=== PATIENT | male | born 1985 | race Caucasian/White ===

== ENCOUNTER 2019-09-26 17:04 | Emergency (ER) | payer BC, SELFPAY ==
[2019-09-26 17:14] VITALS: BP 133/73; PULSE 78; RESP 20; TEMP 37.6; O2SAT 99
--- NOTE | 2019-09-26 17:20 | ED.ANIMALBIT ---
HPI - Animal Bite General Chief Complaint: Animal Bite Stated Complaint: Dog Bite Time Seen by Provider: 09/26/19 17:20 Source: patient and RN notes reviewed History of Present Illness HPI narrative: Patient is a 33-year-old male that presents the urgent care with complaints of a right hand dog bite. Patient states that he works for [employer] and the bite occurred at approximately 1030/11 a.m. this morning, in [place], [place]. This will be a Workmen's Comp. case. Patient states that he got bit by a Korean Babin that is in fact not been vaccinated since 2017. That was verified with animal control. Animal control will follow-up with the dog within the next 10 days. It was advised to the patient that he obtain the rabies vaccinations. Patient also reports of some swelling around the puncture wounds. Patient continue to work for the rest of his [employer] shift. No other acute complaints. No acute distress noted. Patient read the plan of care. Related Data Home Medications Medication Instructions Recorded Confirmed albuterol sulfate 1 inh INHALATION QID PRN 09/26/19 09/26/19 Allergies Allergy/AdvReac Type Severity Reaction Status Date / Time Penicillins Allergy Unknown Rash Verified 09/26/19 17:30 SHELLFISH Allergy Unknown Rash Uncoded 09/26/19 17:30 Review of Systems Review of Systems: Narrative: CONSTITUTIONAL: Denies fever, chills, or sweats. EYES: Denies visual changes, redness, or discharge. ENT: Denies rhinorrhea, congestion, sore throat, or otalgia. CARDIOVASCULAR: Denies chest pain, palpitations, or edema. RESPIRATORY: Denies cough or dyspnea. GASTROINTESTINAL: Denies abdominal pain, nausea, vomiting, or diarrhea. GENITOURINARY: Denies dysuria or hematuria. SKIN: Reports of a dog bite to right hand MUSCULOSKELETAL: Denies back pain, joint pain, or myalgia. NEUROLOGIC: Denies headache, numbness, or weakness. All other systems reviewed are negative, except as documented in HPI. PMFSH Comments At the time of my signature, I reviewed and agree with the nursing past medical, surgical, social, and family history. There is no relevant family history pertinent to the patient complaint. Exam Narrative: Exam Narrative: GENERAL: This is a well-nourished, well-developed patient, in no apparent distress. HEAD: normocephalic, atraumatic. EYES: PERRL. Sclera clear/white. Vision is grossly intact. EARS: External ears normal NOSE: External nose normal with no obvious nasal discharge THROAT: Mucous membranes moist NECK: Neck supple CARDIOVASCULAR: Regular rate and rhythm SKIN: Puncture wound noted to the dorsal medial aspect of the right hand in anatomical position with mild to moderate edema, second puncture wound noted above the MCP of the third digit of the dorsal right hand NEURO: awake, alert, and oriented to person, place and time. There were no obvious focal neurologic abnormalities. EXTREMITIES: Mild to moderate edema noted to the dorsal medial aspect of the right hand, in anatomical position. Range of motion within normal limits with positive strong radial pulse to the right upper extremity, capillary refill less than 2 seconds. Course Vital Signs Vital signs: Vital Signs Temperature 99.6 F 09/26/19 17:14 Pulse Rate 78 09/26/19 17:14 Respiratory Rate 20 09/26/19 17:14 Blood Pressure 133/73 09/26/19 17:14 Pulse Oximetry 99 09/26/19 17:14 Temperature 99.6 F 09/26/19 17:14 Pulse Rate 78 09/26/19 17:14 Respiratory Rate 20 09/26/19 17:14 Blood Pressure 133/73 09/26/19 17:14 Pulse Oximetry 99 09/26/19 17:14 Reviewed Transfer Transfered to: [facility] Transportation: Other (Private car) Transfer rationale: Further vaccination due to possible rabies exposure. Accepting physician: Dr. Ham MDM - Animal Bite MDM Narrative Medical decision making narrative: Advised the patient to complete the antibiotic regimen as prescribed. Make sure to keep the wound ve
[2019-09-26] MEDS: TETANUS,DIPHTHERIA,AC PERTUSSIS ADULT 0.5 ML (ADACEL) IM (17:40)
== END 2019-09-26 18:00 | disposition short-term general hospital (02) ==
PROVIDERS: Emergency Provider Nurse Practitioner Family
DX: S61.451A Open bite of right hand, initial encounter (principal); W54.0XXA Bitten by dog, initial encounter; Y99.0 Civilian activity done for income or pay; Z23 Encounter for immunization; J45.909 Unspecified asthma, uncomplicated
CPT/HCPCS: 90471; 90715; 99213; G0463

== ENCOUNTER 2020-05-23 17:18 | Emergency (ER) | payer BC, SELFPAY ==
[2020-05-23 17:24] VITALS: BP 139/68; PULSE 77; RESP 20; TEMP 37.3; O2SAT 99
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
[2020-05-23] MEDS: AZITHROMYCIN 250 MG TABLET 2000 MG PO (18:03)
== END 2020-05-23 18:25 | disposition home or self-care (01) ==
PROVIDERS: Emergency Provider Nurse Practitioner
DX: Z20.2 Contact with and (suspected) exposure to infections with a predominantly sexual mode of transmission (principal)
CPT/HCPCS: 81003; 87086; 87491; 87591; 87661; 99213; A9270; G0463

== ENCOUNTER 2021-02-11 08:02 | Emergency (ER) | payer BC, SELFPAY ==
--- NOTE | ~2021-02-11 | XR_ITS ---
EXAMINATION: [id number] DATE: 02/11/2021 08:30 INDICATION: Right anterior rib pain. Fall. TECHNIQUE: A frontal view of the chest and 2 views on 3 radiographs of the right ribs were obtained. COMPARISON: None. FINDINGS: The chest demonstrates clear lungs without pneumonia, pleural effusion, or pneumothorax. Th e heart size is normal. IMPRESSION: 1. No rib fracture. Reviewed, dictated and finalized at location A. IMPRESSION: 1. No rib fracture.
[2021-02-11 08:05] VITALS: BP 143/88; PULSE 90; RESP 18; TEMP 36.9; O2SAT 99
--- NOTE | 2021-02-11 08:09 | ED.UPPEXIN ---
HPI - Extremity Injury (Upper) General Chief Complaint: Unspecified Stated Complaint: Possible injured Ribs Time Seen by Provider: 02/11/21 08:09 Source: patient and RN notes reviewed History of Present Illness HPI narrative: Patient is a 35-year-old male who presents the urgent care with complaints of a fall this morning at approximately 6:30 AM. Patient states that he fell onto his right ribs down the steps. Patient denies hitting his head or any loss of consciousness. States that he took to 800 mg ibuprofen prior to his arrival. Patient is using ice pack to the ribs. No other acute complaints. No acute distress noted. Patient aware of the plan of care. Some parts of this dictation were generated by voice recognition software and may contain typographical and/or grammatical inaccuracies. Related Data Home Medications Medication Instructions Recorded Confirmed albuterol sulfate 2 puff INHALATION QID PRN 05/23/20 05/23/20 Allergies Allergy/AdvReac Type Severity Reaction Status Date / Time Penicillins Allergy Unknown Rash Verified 02/11/21 08:13 latex Allergy Rash Verified 02/11/21 08:13 SHELLFISH Allergy Unknown Rash Uncoded 02/11/21 08:13 Review of Systems Review of Systems: CONSTITUTIONAL: Denies fever, chills, or sweats. EYES: Denies visual changes, redness, or discharge. ENT: Denies rhinorrhea, congestion, sore throat, or otalgia. CARDIOVASCULAR: Denies chest pain, palpitations, or edema. RESPIRATORY: Denies cough or dyspnea. Reports of anterior right rib pain GASTROINTESTINAL: Denies abdominal pain, nausea, vomiting, or diarrhea. GENITOURINARY: Denies dysuria or hematuria. SKIN: Denies rash or itching. MUSCULOSKELETAL: Denies back pain, joint pain, or myalgia. NEUROLOGIC: Denies headache, numbness, or weakness. All other systems reviewed are negative, except as documented in HPI. [facility] Past Medical History Medical History No acute medical problems Family History Family History Other No acute medical problems Social History Social History Smoking status: Never smoker Alcohol intake: current Comments At the time of my signature, I reviewed and agree with the nursing past medical, surgical, social, and family history. There is no relevant family history pertinent to the patient complaint. Exam Narrative: GENERAL: This is a well-nourished, well-developed patient, in no apparent distress. HEAD: normocephalic, atraumatic. EYES: PERRL. Sclera clear/white. Vision is grossly intact. EARS: External ears normal NOSE: External nose normal with no obvious nasal discharge, nares without redness, no rhinorrhea. THROAT: Mucous membranes moist NECK: Neck supple CARDIOVASCULAR: Regular rate and rhythm without murmurs, gallops, or rubs. RESPIRATORY: Clear to auscultation. Breath sounds equal bilaterally. Anterior right rib tenderness without notable ecchymosis SKIN: warm, intact with no suspicious lesions or rash, good texture and turgor. NEURO: awake, alert, and oriented to person, place and time. There were no obvious focal neurologic abnormalities. EXTREMITIES: No clubbing, cyanosis, or edema. Course Vital Signs Vital signs: Vital Signs Temperature 98.4 F 02/11/21 08:05 Pulse Rate 90 02/11/21 08:05 Respiratory Rate 18 02/11/21 08:05 Blood Pressure 143/88 H 02/11/21 08:05 Pulse Oximetry 99 02/11/21 08:05 Temperature 98.4 F 02/11/21 08:05 Pulse Rate 90 02/11/21 08:05 Respiratory Rate 18 02/11/21 08:05 Blood Pressure 143/88 H 02/11/21 08:05 Pulse Oximetry 99 02/11/21 08:05 Reviewed-patient is informed that they may have pre-hypertension or hypertension based on a blood pressure reading in the department. I recommend the patient call the primary care provider listed on their discharge instructions or a physic
== END 2021-02-11 08:55 | disposition home or self-care (01) ==
PROVIDERS: Emergency Provider Nurse Practitioner Family
DX: S20.211A Contusion of right front wall of thorax, initial encounter (principal); W10.9XXA Fall (on) (from) unspecified stairs and steps, initial encounter
CPT/HCPCS: 71101; 99213; G0463

== ENCOUNTER 2021-10-17 12:41 | Emergency (ER) | payer BC, SELFPAY ==
[2021-10-17 12:46] VITALS: BP 152/72; PULSE 84; RESP 16; TEMP 37.1; O2SAT 97
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
== END 2021-10-17 13:10 | disposition home or self-care (01) ==
PROVIDERS: Emergency Provider Nurse Practitioner Family
DX: S89.92XA Unspecified injury of left lower leg, initial encounter (principal); Z76.0 Encounter for issue of repeat prescription; W51.XXXA Accidental striking against or bumped into by another person, initial encounter; Y93.72 Activity, wrestling
CPT/HCPCS: 99213; G0463

== ENCOUNTER 2022-10-25 17:17 | Emergency (ER) | payer BC, SELFPAY ==
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
[2022-10-25 17:31] VITALS: BP 111/65; PULSE 69; RESP 16; TEMP 36.9; O2SAT 96
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
--- NOTE | 2022-10-25 19:39 | PC.NURSE ---
Incentive spirometer given and training done.
== END 2022-10-25 19:40 | disposition home or self-care (01) ==
PROVIDERS: Emergency Provider Nurse Practitioner
DX: S22.32XA Fracture of one rib, left side, initial encounter for closed fracture (principal); W51.XXXA Accidental striking against or bumped into by another person, initial encounter; Y93.75 Activity, martial arts
CPT/HCPCS: 71101; 99213; G0463

== ENCOUNTER 2022-12-18 15:38 | Emergency (ER) | payer BC, SELFPAY ==
[2022-12-18 15:42] VITALS: BP 135/67; PULSE 71; RESP 20; TEMP 36.8; O2SAT 98
--- NOTE | 2022-12-18 16:57 | ED.GENADULT ---
HPI - General Adult General Chief complaint: Skin/Abscess/Foreign Body Stated complaint: Rash on groin and stomach area History of Present Illness HPI narrative: Patient presents for evaluation of itching and irritation to the skin in his pelvic area and genital since yesterday. He indicates he woke from sleep with the symptoms. The night before he had unprotected vaginal intercourse with a new female partner. He denies any testicular pain, dysuria, urethral discharge and other urinary symptoms. No fever, chills, nausea or vomiting. He is not sure whether she is symptomatic. He denies associated pain. Hot showers cause worsening symptoms. He has been applying a topic product typically used for itching associated with poison jimmie. He does shave his pubic hair and manicures hair to pelvic region. Related Data Home Medications Medication Instructions Recorded Confirmed albuterol sulfate 90 mcg/actuation 2 puff inhalation QID PRN sob 05/23/20 10/17/21 aerosol inhaler clonazepam 0.5 mg tablet mg 10/25/22 diltiazem HCl 30 mg tablet mg 10/25/22 propranolol 10 mg tablet mg 10/25/22 venlafaxine 37.5 mg mg PO 10/25/22 capsule,extended release 24 hr Allergies Allergy/AdvReac Type Severity Reaction Status Date / Time Penicillins Allergy Unknown Rash Verified 10/17/21 12:55 latex Allergy Rash Verified 10/17/21 12:55 SHELLFISH Allergy Unknown Rash Uncoded 10/17/21 12:55 Review of Systems Review of Systems: CONSTITUTIONAL: Denies fever, chills, or sweats. EYES: Denies visual changes, redness, or discharge. ENT: Denies rhinorrhea, congestion, sore throat, or otalgia. CARDIOVASCULAR: Denies chest pain, palpitations, or edema. RESPIRATORY: Denies cough or dyspnea. GASTROINTESTINAL: Denies abdominal pain, nausea, vomiting, or diarrhea. GENITOURINARY: Denies dysuria or hematuria. Denies urethral discharge. Denies testicular pain. SKIN: Reports itching and irritation of the skin of his region and genitals MUSCULOSKELETAL: Denies back pain, joint pain, or myalgia. NEUROLOGIC: Denies headache, numbness, dizziness, or weakness. PSYCHIATRIC: Denies anxiety or depression. [facility] Past Medical History Medical History Anxiety Rib fracture Surgical History Surgical History No pertinent past surgical history Family History Family History Mother Family history non-contributory Other No acute medical problems Social History Social History Smoking status: Never smoker Alcohol intake: current Substance use: never Additional occupation/education comments: Works for [employer] Gender identity (if verbalized by the patient): Male Spiritual care concerns: No Exam Narrative: GENERAL: Well-appearing, well-nourished, and in no acute distress. HEAD: Normocephalic, atraumatic. EYES: PERRLA and EOMI. ENT: Nares clear, no rhinorrhea or epistaxis. Mucous membranes moist. Oropharynx without tonsillar hypertrophy exudate or other lesions. Bilateral TMs pearly rincon nonbulging NECK: Supple. No adenopathy or masses. No carotid bruits or JVD CHEST: Clear to auscultation. No respiratory distress. No wheezes rales or rhonchi HEART: Regular rate and rhythm. No murmur heard. Normal peripheral pulses. ABDOMEN: Soft, nontender, nondistended, normal active bowel sounds. EXTREMITIES: Normal range of motion. No edema. SKIN: There are patchy areas of erythema noted to the penis, scrotum, inner thighs, pubic region. There is some white crusted drainage to the previously mentioned regions consistent with residual topical product patient reported. There are multiple pinpoint areas of swelling surrounding hair follicles to the penis, scrotum, inner thighs, suprapubic region NEURO: No focal defic
== END 2022-12-18 16:42 | disposition home or self-care (01) ==
PROVIDERS: Emergency Provider Nurse Practitioner
DX: L73.9 Follicular disorder, unspecified (principal)
CPT/HCPCS: 87255; 87491; 87591; 87661; 99213; G0463

== ENCOUNTER 2022-12-21 09:40 | Outpatient (CLI) | payer BC, SELFPAY ==
[2022-12-21 18:44] LABS: Basophils Percent Auto 0.7 % (0.2-1.2); Eosinophils Absolute Auto 0.3 K/mm3 (0-0.3); Eosinophils Percent Auto 5.3 % (0-4.4); Hematocrit 50.3 % (42.0-52.0); Hemoglobin 16.6 g/dL (14.0-18.0); Immature Granulocyte Absolute 0.02 K/mm3 (0.00-0.031); Immature Granulocyte Percent A 0.4 % (0-0.5); Lymphocytes Absolute Auto 1.69 K/mm3 (0.9-3.2); Lymphocytes Percent Auto 31.1 % (18.3-44.2); Mean Corpuscular Hemoglobin 30.2 pg (26-34); Mean Corpuscular Volume 91.6 fl (80-100); Mean Platelet Volume 10.1 fl (7.4-10.4); Monocytes Absolute Auto 0.6 K/mm3 (0.1-0.6); Neutrophils Absolute Auto 2.8 K/mm3 (1.3-6.7); Neutrophils Percent Auto 51.5 % (45.5-73.1); Platelet Count Result 189 k/mm3 (150-375); Red Blood Count 5.49 M/mm3 (4.6-6.20); Red Cell Distribution Width 13.7 % (11.5-14.5); White Blood Count 5.4 K/mm3 (4.5-10.0)
[2022-12-21 19:02] LABS: Alanine Aminotransferase 28 U/L (6-50); Albumin Level 4.3 g/dL (3.5-5.1); Alkaline Phosphatase 50 U/L (38-126); Anion Gap 5 mmol/L (8-16); Aspartate Amino Transferase 63 U/L (17-59); Bilirubin,Total 0.5 mg/dL (0.2-1.3); Blood Urea Nitrogen 13 mg/dL (9-20); Calcium 8.9 mg/dL (8.4-10.2); Carbon Dioxide 28 mmol/L (22-30); Chloride 103 mmol/L (98-107); Estimated Glomerular Filt Rate > 60; Glucose 95 mg/dL (65-110); Sodium 136 mmol/L (137-145)
[2022-12-24 14:45] LABS: Testosterone Free 100.5 pg/mL (35.0-155.0); Testosterone Total 490 ng/dL (250-1100)
== END 2022-12-21 09:41 | disposition home or self-care (01) ==
LOC: ANHBWCLAB 09:42
PROVIDERS: Visit Provider Nurse Practitioner Adult Health
DX: E29.1 Testicular hypofunction (principal)
CPT/HCPCS: 36415; 80053; 84402; 84403; 85025

== ENCOUNTER 2023-03-30 12:45 | Outpatient (CLI) | payer BC, SELFPAY ==
[2023-04-02 16:24] LABS: Testosterone Free 26.6 pg/mL (35.0-155.0); Testosterone Total 233 ng/dL (250-1100)
== END 2023-03-30 12:46 | disposition home or self-care (01) ==
PROVIDERS: PCP Nurse Practitioner Adult Health; Visit Provider Nurse Practitioner Adult Health
DX: E29.1 Testicular hypofunction (principal)
CPT/HCPCS: 36415; 84402; 84403

== ENCOUNTER 2023-06-26 08:41 | Outpatient (CLI) | payer BC, SELFPAY ==
[2023-06-26 18:55] LABS: Hematocrit 53.4 % (42.0-52.0); Hemoglobin 17.3 g/dL (14.0-18.0); Mean Corpuscular HGB Conc 32.4 g/dl (32-36); Mean Corpuscular Hemoglobin 30.4 pg (26-34); Mean Corpuscular Volume 93.7 fl (80-100); Mean Platelet Volume 10.6 fl (7.4-10.4); Platelet Count Result 199 k/mm3 (150-375); Red Cell Distribution Width 13.5 % (11.5-14.5); White Blood Count 6.6 K/mm3 (4.5-10.0)
[2023-06-26 20:52] LABS: Alanine Aminotransferase 23 U/L (6-50); Alkaline Phosphatase 52 U/L (38-126); Anion Gap 8 mmol/L (8-16); Aspartate Amino Transferase 52 U/L (17-59); Bilirubin,Total 0.5 mg/dL (0.2-1.3); Blood Urea Nitrogen 14 mg/dL (9-20); Calcium 8.5 mg/dL (8.4-10.2); Carbon Dioxide 26 mmol/L (22-30); Chloride 104 mmol/L (98-107); Estimated Glomerular Filt Rate > 60; Glucose 89 mg/dL (65-110); Potassium 4.1 mmol/L (3.4-5.0); Sodium 138 mmol/L (137-145)
[2023-06-26 20:58] LABS: Vitamin D 25 Hydroxy 70.1 ng/mL
[2023-07-01 14:17] LABS: Testosterone Free 476.4 pg/mL (35.0-155.0); Testosterone Total 1377 ng/dL (250-1100)
== END 2023-06-26 08:42 | disposition home or self-care (01) ==
LOC: ANHBWCLAB 08:42
PROVIDERS: PCP Nurse Practitioner Adult Health; Visit Provider Nurse Practitioner Adult Health
DX: E29.1 Testicular hypofunction (principal); R53.83 Other fatigue
CPT/HCPCS: 36415; 80053; 82306; 82607; 82746; 84402; 84403; 85027

== ENCOUNTER 2023-10-20 18:31 | Emergency (ER) | payer OTHER, BC, SELFPAY ==
[2023-10-20 18:41] VITALS: BP 134/77; PULSE 67; RESP 16; TEMP 37.4; O2SAT 97
--- NOTE | 2023-10-20 18:52 | ED.ANIMALBIT ---
HPI - Animal Bite General Chief Complaint: Animal Bite Stated Complaint: Right leg above knee dog bite Source: patient Mode of arrival: ambulatory Limitations: no limitations History of Present Illness HPI narrative: 37-year-old male presented for complaint dog bite above right knee sustained 3 hours prior to arrival. 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 He assumes it is their domestic pet but is unsure of vaccination status. He has contacted the authorities and got the campground caretaker's name from their package. Endorses pain to the knee and decreased ROM. Unsure of last tetanus. Related Data Home Medications Medication Instructions Recorded Confirmed diltiazem HCl 30 mg tablet mg 10/25/22 06/26/23 clonazepam 0.5 mg tablet 0.5 mg PO QHS PRN 12/21/22 06/26/23 venlafaxine 37.5 mg tablet 37.5 mg PO DAILY 12/21/22 06/26/23 testosterone cypionate 200 mg/mL 200 mg IM .every 2 weeks 07/03/23 intramuscular oil (Depo-Testosterone) Allergies Allergy/AdvReac Type Severity Reaction Status Date / Time Penicillins Allergy Unknown Rash Verified 06/26/23 08:12 latex Allergy Rash Verified 06/26/23 08:12 SHELLFISH Allergy Unknown Rash Uncoded 06/26/23 08:12 Review of Systems Review of Systems: CONSTITUTIONAL: Denies body aches, fever, chills, or sweats. EYES: Denies visual changes, redness, or discharge. ENT: Denies rhinorrhea, congestion CARDIOVASCULAR: Denies chest pain, palpitations, or edema. RESPIRATORY: Denies cough or dyspnea. GASTROINTESTINAL: Denies abdominal pain, nausea, vomiting, or diarrhea. SKIN: reports dog bite to right knee MUSCULOSKELETAL: Denies back pain, joint pain, or myalgia. NEUROLOGIC: Denies headache, numbness, tingling, or weakness. [facility] Past Medical History Medical History Anxiety Rib fracture Surgical History Surgical History No pertinent past surgical history Family History Family History Mother Family history non-contributory Grandparent Hypertension Depression Cancer Other No acute medical problems Social History Social History Smoking status: Never smoker Alcohol intake: current Alcohol use details: every couple weeks Substance use: never Lack of Transportation: No Lack of Food: Never True Current Housing: I Have Housing Concerned About Future Housing: No Difficulty Paying Gas/Electric Bills: No Difficulty Paying for Meds: No Currently Unemployed: No Education: Associate Degree Difficulty w/ Childcare or Family Care: No Living arrangements: alone Occupation/Education: occupation Additional occupation/education comments: Works for [employer] Gender identity (if verbalized by the patient): Male Spiritual care concerns: No Agree to blood products: Yes Comments At time of signature, I have reviewed and agree with nursing past medical, surgical, social and family history unless otherwise noted. Please see nursing chart for further information. There is no relevant family history pertinent to the presenting complaint Exam Narrative: GENERAL: Well-appearing EYES: conjunctivae clear, and EOMI. CHEST: Unlabored breathing SKIN: Warm, dry. Single wound, approx [id number] superficial abrasion just superior/medial right knee, scabbed; no swelling, induration, drainage. Reports tenderness to the site. MUSC: Pt reports decreased ROM to right knee, however the wound does not appear to be significant to result in damage. Gait slow. NEURO: Alert and oriented x3. Course Course Emergency Course: Patient is aware of diagnosis, understands and agrees to treatment plan. Anticipatory guidance given. Patient agrees to follow-up as directed and is aware of reasons to seek care at the emerge
== END 2023-10-20 19:12 | disposition home or self-care (01) ==
PROVIDERS: Emergency Provider Nurse Practitioner Family
DX: S70.311A Abrasion, right thigh, initial encounter (principal); W54.0XXA Bitten by dog, initial encounter; Y99.0 Civilian activity done for income or pay; F41.9 Anxiety disorder, unspecified
CPT/HCPCS: 99213; G0463